=== PATIENT | female | born 1985 | race African-American/Black ===

== ENCOUNTER 2021-05-28 21:03 | Emergency (ER) | payer MEDICAID, OTHER ==
[~2021-05-28] VITALS: Ht 157.5 cm; Wt 70.3 kg
[2021-05-28 23:11] LABS: Basophils # (auto) 0.1 10 ^3/uL (0-0.2); Basophils % (auto) 0.7 % (0.0-2.0); Eosinophils # (auto) 0.1 10 ^3/uL (0-0.8); Hemoglobin 13.5 g/dL (12.2-16.2); Lymphocytes # (auto) 2.6 10 ^3/uL (0.4-5.4); Lymphocytes % (auto) 34.4 % (10.0-50.0); Mean Corpuscular Hemoglobin 29.7 pg (28.0-32.0); Mean Corpuscular Hgb Conc. 34.6 g/dL (32.0-36.0); Mean Corpuscular Volume 85.9 fL (80.0-100.0); Monocytes # (auto) 0.6 10 ^3/uL (0-1.3); Monocytes % (auto) 7.6 % (0.0-12.0); Neutrophils # (auto) 4.3 10 ^3/uL (1.6-8.6); Neutrophils % (auto) 56.3 % (37.0-80.0); Nucleated Red Blood Cells % 0.1 %; Red Blood Cells 4.54 10^6/uL (4.0-5.20); Red Cell Distribution Width 13.2 % (11.8-14.3); White Blood Cell 7.6 10^3/uL (4.4-10.8)
[2021-05-28] MEDS ORDERED: IOHEXOL 300 MG/ML 100ML BOTTLE IJ ONE (23:13)
[2021-05-28 23:35] LABS: Albumin 3.9 g/dL (3.4-5.0); Chloride 107 mmol/L (98-107); Potassium 3.6 mmol/L (3.5-5.1); Sodium 140 mmol/L (136-145)
[2021-05-28 23:39] LABS: Alanine Aminotransferase 15 U/L (13-56); Anion Gap 5 (5-15); Aspartate Aminotransferase 14 U/L (15-37); BUN/Creatinine Ratio 13.6; Blood Urea Nitrogen 8 mg/dL (7-18); Calcium 8.9 mg/dL (8.5-10.1); Carbon Dioxide 28 mmol/L (21-32); GFR African American 149 mL/min; GFR Non-African American 123 mL/min; Glucose 88 mg/dL (74-106)
[2021-05-28 23:44] LABS: Alkaline Phosphatase 88 U/L (45-117); Bilirubin, Total 0.4 mg/dL (0.2-1.0); Total Protein 8.1 g/dL (6.4-8.2)
[2021-05-29 03:44] VITALS: BP 118/74
== END 2021-05-29 03:52 | disposition home or self-care (01) ==
LOC: ER 21:10
DX: F41.9 Anxiety disorder, unspecified (principal); M54.2 Cervicalgia; Z32.02 Encounter for pregnancy test, result negative
CPT/HCPCS: 36415; 70491; 71046; 80053; 81025; 83735; 83880; 84484; 85025; 93005; 99285; Q9967

== ENCOUNTER → 2021-09-04 | Outpatient (CLI) | payer MEDICAID ==
[~2021-09-04] MED LIST: ALBUTEROL SULF 2.5 MG/0.5ML(0.5%) NEB SOLN ONE
== END | disposition home or self-care (01) ==
LOC: RT 09:02
PROVIDERS: ATTEND Internal Medicine Pulmonary Disease
DX: R06.02 Shortness of breath (principal)
CPT/HCPCS: 94060

== ENCOUNTER 2024-05-17 06:28 | Emergency (ER) | payer MEDICAID, OTHER ==
[~2024-05-17] VITALS: Ht 157.5 cm; Wt 74.5 kg
[2024-05-17 07:20] VITALS: BP 120/64; PULSE 90; RESP 16; TEMP 98.4; O2SAT 98
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
[2024-05-17] MEDS ORDERED: NAPR-746 PO (08:44)
[2024-05-17] MEDS ORDERED: LIDO5DIS21 TOP (08:44)
[2024-05-17] MEDS ORDERED: METH-1181 PO (08:44)
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
== END 2024-05-17 08:53 | disposition home or self-care (01) ==
LOC: ER 06:28
DX: M25.522 Pain in left elbow (principal); M54.50 Low back pain, unspecified; M79.662 Pain in left lower leg; M79.661 Pain in right lower leg; Z86.2 Personal history of diseases of the blood and blood-forming organs and certain disorders involving the immune mechanism; V43.52XA Car driver injured in collision with other type car in traffic accident, initial encounter; Y93.89 Activity, other specified; Y92.410 Unspecified street and highway as the place of occurrence of the external cause; Y99.8 Other external cause status
CPT/HCPCS: 72100